=== PATIENT | female | born 1985 | race Caucasian/White ===

== ENCOUNTER → 2017-02-19 | Outpatient (CLI) | payer MEDICAID ==
[~2017-02-19] MED LIST: AUGMENTIN 500 M1 TAB PO; BACTRIM DS 8001 TAB PO; CELEXA20 M1 PO; CIPRO 500MG TA500 MG PO; FLEXERIL10 M1 PO; IBUPROFEN600 MG PO; IRON TABLETS325 MG PO; LORTAB 5/500 501 TAB PO; MOTRIN 400MG.400 MG PO; NAPROSYN 500MG500 MG PO; NOMEDS; PERCOCET 5/3251 EACH PO; PRENATAL PLUS1 TA1 PO; ULTRACET 325 MG1 TAB PO; ZANTAC 150150 MG PO
[2017-02-19 12:14] LABS: LYMPH % 29.2 % (10-50.0)
[2017-02-19 15:46] LABS: ABO BLOOD TYPE A; RH BLOOD TYPE POSITIVE
[2017-02-20 08:47] LABS: HIV Screen 4th Generation wRfx Non Reactive (Non Reactive); Rapid Plasma Reagin, Quant Non Reactive (NonRea<1:1)
[2017-02-20 09:38] LABS: Rubella Antibodies, IgG 1.56 index (Immune >0.99)
[2017-02-20 12:36] LABS: HBsAg Screen Negative (Negative)
== END ==
LOC: LAB 11:03
PROVIDERS: Nurse Practitioner Obstetrics & Gynecology
DX: Z34.80 Encounter for supervision of other normal pregnancy, unspecified trimester (principal)
CPT/HCPCS: G0432

== ENCOUNTER → 2017-04-17 | Outpatient (CLI) | payer MEDICAID ==
[2017-04-17 11:06] LABS: HEMOGLOBIN 12.5 g/dL (12.2-16.2); LYMPH # 1.8 K/mm3 (0.7-4.5); LYMPH % 20.7 % (10-50.0)
[2017-04-17 13:22] LABS: BUN 8 mg/dL (7-18); GFR (ESTIMATED) 117 ML/MIN (59-)
[2017-04-26 17:40] LABS: Gest. Age on Collection Date 17.0 WEEKS; Maternal Age At EDD 31.8 YEARS; Results REPORT
[2017-04-26 17:41] LABS: AFP Value 37.8 ng/mL; Insulin Dep Diabetes NOT PROVIDED; hCG MoM 0.92; hCG Value 20936 mIU/mL; uE3 MoM 1.12; uE3 Value 1.04 ng/mL
[2017-04-26 17:42] LABS: DIA Value 309.56 pg/mL; DSR (Second Trimester) 1 IN 1000; Interpretation SCREEN NEGATIVE; OSBR Risk 1 IN 3810
== END ==
LOC: LAB 10:29
PROVIDERS: Nurse Practitioner Obstetrics & Gynecology
DX: Z34.80 Encounter for supervision of other normal pregnancy, unspecified trimester (principal)